=== PATIENT | male | born 1955 | race Two or more races ===

== ENCOUNTER 2019-08-28 03:55 | Emergency (ER) | payer OTHER, MEDICARE ==
[~2019-08-28] VITALS: Ht 162.6 cm; Wt 67.9 kg
--- NOTE | 2019-08-28 04:16 | NUR ---
Pt states he woke up this morning with a headache and feeling "different." Pt states his blood pressure was high and he felt anxious, so he drank a nacho tea. Pt states he feels a little better now, but still has a headache and feels somewhat anxious.
[2019-08-28 05:43] LABS: MICROSCOPIC NOT IND
[2019-08-28] MEDS ORDERED: CEFTRIAXONE PMX 1GM/50ML 50 ML ONE (05:43)
[2019-08-28 05:44] LABS: CULTURE INDICATED? NO
[2019-08-28 05:56] LABS: BASOPHILS # (AUTO) 0.02 x10^3/uL (0-0.1); BASOPHILS % (AUTO) 0 % (0-1); EOSINOPHILS # (AUTO) 0.11 x10^3/uL (0-0.4); EOSINOPHILS % (AUTO) 1 % (1-7); LYMPHOCYTES # (AUTO) 0.98 x10^3/uL (1-3.4); LYMPHOCYTES % (AUTO) 12 % (22-44); MD NO; MEAN CORPUSCULAR HEMOGLOBIN 33.1 pg (27.5-34.5); MEAN CORPUSCULAR HGB CONC 34.4 g/dL (33.2-36.2); MEAN CORPUSCULAR VOLUME 96.2 fL (81-97); MONOCYTES # (AUTO) 0.66 x10^3/uL (0.2-0.8); MONOCYTES % (AUTO) 8 % (2-9); NEUTROPHILS # (AUTO) 6.26 x10^3/uL (1.8-6.8); NEUTROPHILS % (AUTO) 78 % (42-75); PLATELET COUNT 189 x10^3/uL (130-400); RED BLOOD COUNT 4.83 x10^6/uL (4.38-5.82); RED CELL DISTRIBUTION WIDTH 13.7 % (9.4-14.8)
[2019-08-28 05:57] VITALS: BP 144/78
[2019-08-28 06:02] LABS: ANION GAP 6 mmol/L (5-15); CALCIUM 8.9 mg/dL (8.5-10.1); CHLORIDE 106 mmol/L (98-107)
[2019-08-28 06:10] LABS: ALANINE AMINOTRANSFERASE 35 U/L (12-78); ALKALINE PHOSPHATASE 95 U/L (45-117); BILIRUBIN,TOTAL 0.7 mg/dL (0.2-1.0); CREATININE 0.83 mg/dL (0.7-1.3); TOTAL PROTEIN 7.3 g/dL (6.4-8.2); TROPONIN I < 0.015 ng/mL (0.000-0.045)
--- NOTE | 2019-08-28 06:17 | NUR ---
Rocephin pulled under wrong patient name, not administered to this patient.
== END 2019-08-28 06:48 | disposition home or self-care (01) ==
LOC: ED 05:48
DX: I10 Essential (primary) hypertension (principal); R42 Dizziness and giddiness
CPT/HCPCS: 36415; 70450; 71045; 80053; 81003; 84484; 85025; 93005; 99285

== ENCOUNTER 2019-09-07 22:38 | Emergency (ER) | payer MEDICARE, OTHER ==
[~2019-09-07] VITALS: Ht 165.1 cm; Wt 65.9 kg
[2019-09-07] MEDS ORDERED: LISI-167 PO (22:47)
--- NOTE | 2019-09-07 23:08 | NUR ---
Pt presents to room stating he felt "foggy" this morning and noted his blood pressure to be high (170s/80s). Pt's last BP at home [employer] project [employer] was 181/100. Pt denies chest pain, SOB, headache, dizziness, or recent cough/fever. Pt does state he was not able to sleep last night.
[2019-09-07] MEDS ORDERED: LORazepam 1MG TABLET ONE (23:17)
[2019-09-07] MEDS ORDERED: LORazepam 1MG TABLET PO ONE (23:30)
[2019-09-08 00:04] VITALS: BP 144/82
== END 2019-09-08 00:06 | disposition home or self-care (01) ==
LOC: ED 23:42
DX: I10 Essential (primary) hypertension (principal); F41.1 Generalized anxiety disorder
CPT/HCPCS: 93005; 99283